=== PATIENT | female | born 1955 | race Caucasian/White ===

== ENCOUNTER 2020-11-21 12:02 | Outpatient (REF) | payer MEDICARE, SELFPAY | END 2020-11-21 12:03 | disposition home or self-care (01) | LOC: HO.LAB 12:02 | PROVIDERS: Visit Provider Internal Medicine | DX: Z20.822 Contact with and (suspected) exposure to COVID-19 (principal) | CPT/HCPCS: 36415; C9803; U0003; U0005 ==

== ENCOUNTER 2025-06-28 14:43 | Outpatient (AMB) | payer MEDICARE, SELFPAY ==
--- OUTSIDE RECORDS SUMMARY | 2020-06-11 11:41 | XMS_ITS | Encounter Summary ---
Author Organization [facility] Address [address] [place] [address] [place] [id number] Phone Care Team Providers Care Ophthalmology Technician Name Role Phone Mishel Ivan MD Primary Care Provider + [phone] Encounter Details Date Type Department Care Team (Late st Contact Info) Description 06/11/2020 11:41 AM EDT Hospital Encounter [facility] [address] [place] [id number] Natasha Gan CNP [address] [place] [address] Social History Tobacco Use Types Packs/Day Years Used Date Smoking Tobacco: Never Smokeless Tobacco: Never Alcohol Use Standard Drinks/Week Comments Yes 7 (1 standard drink = 0.6 oz pur e alcohol) Home Health Assessment: Transportation Answer Date Recorded Lack of Transportation (Medical) No 09/01/2024 Lack of Transportation (Non-Medical) No 09/01/2024 Patient Unable or Declines to Respond No 09/01/2024 Education Answer Date Recorded Are you interested in more education? Not on henna e 01/29/2023 Are you concerned about learning? Not on file 01/29/2023 No 01/29/2023 No 01/29/2023 Digital Access Answer Date Recorded No 03/01/2023 No 03/01/2023 Reliable internet access at home? Not on file 03/01/2023 Device with a working camera? Not on file Intimate Partner Violence Answer Date R ecorded Are you denied basic needs s uch as food, clothing, or medical care? No 08/14/2024 In the past 12 months have y ou been in a relationship with a person who hurts, threatens, or tries to control you? No 08/14/2024 Are you denied basic needs s uch as food, clothing, or medical care? No 08/14/2024 In the past 12 months have y ou been in a relationship with a person who hurts, threatens, or tries to control you? No 08/14/2024 Comments No Sex and Gender Information Value Date Recorded Sex Assigned at Female 06/11/2020 1:06 PM EDT Legal Sex Female 9:59 PM EDT Gender Identity Female 06/11/2020 1:06 PM EDT Sexual Orientation Not on file documented as of this encounter Functional Status * Calculated C-SSRS Risk Score (Lifetime/Recent) Answer Date of Assessment Author No Risk Indicated 08/14/2024 2:31 PM Wanda Kinsey RN * [place] Suicide Severity Rating Scale (Screener/Recent Self-Report) Question Answer Date of Assessment Author 1. Wish to be (Past 1 Month) No 08/14/2024 2:31 PM Wanda Loomis RN 2. Non-Specific Active Suicidal Thoughts (Past 1 Month) No 08/14/2024 2:31 PM Wanda Loomis RN 6. Suicidal Behavior (Lifetime) No 08/14/2024 2:31 PM Wanda Loomis, LAURITA documented as of this encounter Plan of Treatment Not on file documented as of this encounter Procedures Procedure Name Priority Date/Time Associated Diagnosis Comments XR HAND 3 OR MORE VIEWS (LEFT) Urgent/patient waiting 06/11/2020 11:46 AM EDT Horse bite, initial encounter documented in this encounter Results * XR HAND 3 OR MORE VIEWS (LEFT) (06/11/2020 11:46 AM EDT) Anatomical Region Laterality Modality Hand Left Radiographic Marlyn ging 06/11/2020 11:5 8 AM EDT Impressions 06/11/2020 12:06 PM EDT Mildly displaced oblique fracture through the 5th metacarpal. Narrative 06/11/2020 12:06 PM EDT EXAM: XR HAND 3 OR MORE VIEWS (LEFT) COMPARISON: None FINDINGS: Mildly displaced oblique fracture through the proximal diaphysis of the 5th metacarpal without intra-articular extension. There is minimal palmar angulation of the distal fragment on the lateral view. Remaining osseous structures are intact. Prominent hypertrophic degenerative changes at the 1st carpometacarpal joint associated with adjacent prominent soft tissue calcifications. No radiopaque foreign body. No soft tissue gas in the vicinity of the fracture site. Procedure Note Chinmay Cruz MD - 06/11/2020 EXAM: XR HAND 3 OR MORE VIEWS (LEFT) COMPARISON: None FINDINGS: Mildly displaced oblique fracture through the proximal diaphysis of the5th metacarpal without intra-articular extension. There is minimal palmarangulation of the distal fragment on the lateral view. Remaining osseousstructures are intact. Prominent hypertrophic degenerative changes at the1st carpometacarpal joint associated with adjacent prominent soft tissuecalcifications. No radiopaque foreign body. No soft tissue gas in thevicinity of the fracture site. IMPRESSION: Mildly displaced oblique fracture through the 5th metacarpal. Natasha Gan GAS MAIN FITTER IMG XR UPPER EXTREMITY Mihaela l Result documented in this encounter Visit Diagnoses Not on filedocumented in this encounter Care Teams Ophthalmology Technician Relationship Specialty Start Date End Date Mishel Ivan MD PCP - General Internal Medicine 12/29/17 01/26/22 documented as of this encounter Additional Source Comments The information contained in this document represents components of the legal health record. It is not the complete legal health record.[facility]
--- NOTE | 2025-06-28 14:59 | A.OFFVIS_ITS ---
Intake Visit Reasons: ENP-Parkinson's Disease HPI Comments Details: The patient is a 70-year-old female, who has worked in raising horses for years, with strong family history of Parkinson's presenting with symptoms associated with Parkinson's Disease. The condition was initially suspected during a past medical evaluation that included a CAT scan and MRI, ordered by Dr. Godinez around April. The imaging did not conclusively identify Parkinson. The principal symptoms involve a shuffle, a forward-leaning posture, tremors, poor motor skills predominantly affecting the right side, and persistent fatigue that worsens by the afternoon. A vitamin D deficiency has been previously identified and treated with weekly supplements, yet significant fatigue persists. Additionally, the patient experiences a visual disturbance described as a film over her eyes, contributing to difficulty in reading. There is an established history of droopy eyelid on the right side. An occasional gag reflex accompanied by coughing is noted, although there are no reports of nausea or vomiting. [facility] Medical History (Updated 06/28/25 @ 15:14 by Enrike Evans MD) Rosacea Pure hypercholesterolemia Osteoarthritis of hip Actinic keratosis Basal cell carcinoma of skin Hypertension Lichen sclerosus Vitamin B12 deficiency Vitamin D deficiency Family History (Updated 06/26/25 @ 11:38 by Jean Marie Anderson CMA) Mother Breast cancer Father Parkinson's disease dementia Prostate cancer Pacemaker Brother Prostate cancer Review of Systems Const Details: - General: Reports significant fatigue, weight loss. - Eyes: Reports film over eyes; denies double vision. - Neurological: Reports tremors, poor motor skills, and right-handed positioning when walking; denies cognitive changes beyond increased anxiety. - Musculoskeletal: Reports shuffle, forward-leaning posture. - Psychiatry: Reports anxiety; denies significant changes in mood or behavior. - Endocrine: Previously low vitamin D levels, now stable. Physical Exam Neuro Other: Mental Status: Alert and oriented to person, place, and time. Normal attention. Normal spontaneous speech, fluency, and comprehension. No obvious issues with mood and memory. Affect is appropriate. Cranial Nerves: CN II: Visual sanford full to confrontation, visual acuity intact. CN III, IV, : Pupils equal, round, reactive to light and accommodation. Extraocular movements are normal. CN V: Facial sensation is normal. CN VII: Facial movements symmetrical. CN VIII: Hearing intact to bedside conversation is normal. CN IX, X: Palate elevates symmetrically. CN XI: Shoulder shrug and head turn symmetrical. CN XII: Tongue midline without atrophy or fasciculations. Motor: Bulk and tone normal in all extremities. No significant muscle weakness in arms and legs. No drift. Reflexes: Deep tendon reflexes 2+ and symmetric. Plantar response down-going bilaterally. Coordination: Jyminq-kd-myjx and hqci-dv-rcgg testing normal. No dysmetria. Gait and Station: No obvious gait abnormality. No ataxia or instability. Sensory: Intact to light touch, pinprick, and vibration. Romberg is negative. Extrapyramidal: Decreased facial expression and blinking. There was mild right-sided ptosis. There was moderate cogwheeling rigidity especially in right upper extremity and LEs on left side. Fine finger movements are slow. There was mild generalized bradykinesia. She was walking cautiously with decreased right arm swing. Speech: Normal; no dysarthria or tremor. Assessment & Plan Assessment & Plan (1) Parkinson disease: Code(s): G20.A1 - Parkinson's disease without dyskinesia, without mention of fluctuations Category: Medical Qualifiers: Dyskinesia presence: without dyskinesia Fluctuating manifestations: with fluctuating manifestations Qualified Code(s): G20.A2 - Parkinson's disease without dyskinesia, with fluctuations (2) Ptosis: Code(s): H02.409 - Unspecified ptosis of unspecified eyelid Category: Medical Qualifiers: Laterality: right Qualified Code(s): H02.401 - Unspecified ptosis of right eyelid Plan Impression: Parkinson disease, mild, EDSS 1.0, more so on the right side with some anxiety Rec: a: Education of patient about this condition. An overview was provided and link provided for further reading. b: Carbidopa/levodopa 25/100 tid c: Bring CD of brain scan at next visit d: Regular exercise or walking regimen e: Anxiety may require some treatment Orders: Orders Acetylcholine Recept. Blocking Today H02.401 - Unspecified ptosis of right eyelid Acetylcholine Nurse Navigator Modulating Today H02.401 - Unspecified ptosis of right eyelid Acetylcholine Receptor Binding Today H02.401 - Unspecified ptosis of right eyelid Medications: New carbidopa-levodopa 25-100 mg (Sinemet) 1 tab PO TID 270 tabs 1RF Coding Level of Care Code New Pt Level 5 (79402) Diagnoses Parkinson's disease without dyskinesia, with fluctuating manifestations G20.A2 Dyskinesia presence: without dyskinesia Fluctuating manifestations: with fluctuating manifestations Ptosis of right eyelid H02.401 Laterality: right
--- OUTSIDE RECORDS SUMMARY | 2025-06-28 19:02 | XMS_ITS | Encounter Summary ---
Author Organization [facility] Address [address] [place] [phone] Phone Care Team Providers Care Inspector Subassembly Name Role Phone Antonette Blanco MD Primary Care Pr ovider Encounter Details Date Type Department Care Team ([facility] st Contact Info) Description 08/14/2024 Procedure Pass OR Admitting Dept - Virtual Department [address] [place] [address] Social History Tobacco Use Types Packs/Day Years Used Date Smoking Tobacco: Never Smokeless Tobacco: Never Alcohol Use Standard Drinks/Week Comments Yes 7 (1 standard drink = 0.6 oz pur e alcohol) Home Health Assessment: Transportation Answer Date Recorded Lack of Transportation (Medical) No 08/17/2024 Lack of Transportation (Non-Medical) No 08/17/2024 Patient Unable or Declines to Respond No 08/17/2024 Education Answer Date Recorded Are you interested [...] 08/14/2024 2:31 PM Wanda Kinsey RN * [place] Suicide Severity Rating Scale (Screener/Recent Self-Report) Question Answer Date of Assessment Author 1. Wish to be (Past 1 Month) No 08/14/2024 2:31 PM Wanda Loomis RN 2. Non-Specific Active Suicidal Thoughts (Past 1 Month) No 08/14/2024 2:31 PM Wanda Loomis RN 6. Suicidal Behavior (Lifetime) No 08/14/2024 2:31 PM Wanda Loomis RN documented as of this encounter Plan of Treatment Not on file documented as of this encounter Visit Diagnoses Not on filedocumented in this encounter Care Teams Inspector Subassembly Relationship Specialty Start Date End Date Antonette Blanco MD [address] [place] [id number] PCP - General Internal Medicine 01/27/24 documented as of this encounter Additional Source Comments The information contained in this document represents components of the legal health record. It is not the complete legal health record.[facility]
== END 2025-06-28 15:22 | disposition home or self-care (01) ==
LOC: HO.HSM 14:44
PROVIDERS: PCP Internal Medicine; Visit Provider Psychiatry & Neurology Neurology
DX: G20.A2 Parkinson's disease without dyskinesia, with fluctuations (principal); H02.401 Unspecified ptosis of right eyelid
CPT/HCPCS: 99204

== ENCOUNTER → 2025-06-28 14:43 | Outpatient (BNVA) | payer MEDICARE, SELFPAY | PROVIDERS: PCP Internal Medicine; Visit Provider Psychiatry & Neurology Neurology | DX: G20.A2 Parkinson's disease without dyskinesia, with fluctuations (principal); H02.401 Unspecified ptosis of right eyelid | CPT/HCPCS: 99202 ==

== ENCOUNTER 2025-07-23 14:34 | Outpatient (REF) | payer MEDICARE, SELFPAY ==
[2025-07-24 09:09] LABS: Lyme Abs Screen <0.90 index
== END 2025-07-23 14:35 | disposition home or self-care (01) ==
LOC: HO.LAB 14:34
PROVIDERS: PCP Internal Medicine; Visit Provider Psychiatry & Neurology Neurology
DX: G20.A1 Parkinson's disease without dyskinesia, without mention of fluctuations (principal); I67.89 Other cerebrovascular disease; H02.403 Unspecified ptosis of bilateral eyelids; Z01.84 Encounter for antibody response examination; Z79.899 Other long term (current) drug therapy
CPT/HCPCS: 36415; 85652; 86617; 86618; 99212

== ENCOUNTER 2025-07-23 14:34 | Outpatient (AMB) | payer MEDICARE, SELFPAY ==
--- OUTSIDE RECORDS SUMMARY | 2020-06-11 11:41 | XMS_ITS | Encounter Summary ---
Author Organization [facility] Address [address] [place] [address] [place] [phone] Phone Care Team Providers Care Bead Worker Sewing Name Role Phone Mishel Ivan MD Primary Care Provider + [phone] Encounter Details Date Type Department Care Team (Late st Contact Info) Description 06/11/2020 11:41 AM EDT Hospital Encounter [facility] [address] [place] [id number] Natasha Gan CNP [address] [place] [address] Social History Tobacco Use Types Packs/Day Years [...] 08/14/2024 2:31 PM Wanda Kinsey RN * [place] Suicide Severity Rating Scale (Screener/Recent Self-Report) Question [...] fracture through the 5th metacarpal. Natasha Gan OPERATIONS ADMINISTRATOR IMG XR UPPER EXTREMITY Mihaela l Result documented in this encounter Visit Diagnoses Not on filedocumented in this encounter Care Teams Bead Worker Sewing Relationship Specialty Start Date End Date Mishel Ivan MD PCP - General Internal Medicine 12/29/17 01/26/22 documented as of this encounter Additional Source Comments The information contained in this document represents components of the legal health record. It is not the complete legal health record.[facility]
--- NOTE | 2025-07-23 14:43 | A.OFFVIS_ITS ---
Intake Visit Reasons: 3 weeks HPI Comments Details: The patient is a 70-year-old female, who has worked in raising horses for years, with strong family history of Parkinson's presenting with symptoms associated with Parkinson's Disease. The condition was initially suspected during a past medical evaluation that included a CAT scan and MRI, ordered by Dr. Godinez around April. The imaging did not conclusively identify Parkinson. The principal symptoms involve a shuffle, a forward-leaning posture, tremors, poor motor skills predominantly affecting the right side, and persistent fatigue that worsens by the afternoon. A vitamin D deficiency has been previously identified and treated with weekly supplements, yet significant fatigue persists. Additionally, the patient experiences a visual disturbance described as a film over her eyes, contributing to difficulty in reading. There is an established history of droopy eyelid on the right side. An occasional gag reflex accompanied by coughing is noted, although there are no reports of nausea or vomiting. She is presenting for a follow-up on Parkinson's disease management and recent ocular symptoms. She has been prescribed carbidopa/levodopa and reports an improvement over the last three weeks. A recent episode of diarrhea resolved within a week. The patient notes progressive ptosis of the left eyelid that started about a month ago, prompting concerns over myasthenia gravis. The right eyelid has been chronically affected, contributing to visual difficulties that might also involve cataracts. Non-adherence to hypertension management may underpin the multiple ischemic changes seen on brain imaging; these are presumed silent strokes. Consequently, she must be vigilant with her antihypertensive regimen. Cardiovascular evaluation, including Holter monitoring, has been indicated to assess stroke risks. Previous antibody tests related to myasthenia gravis were incomplete, indicating the need for repeat testing. Family history includes droopy eyelids among siblings. [facility] Medical History (Updated 07/23/25 @ 14:54 by Enrike Evans MD) Rosacea Pure hypercholesterolemia Osteoarthritis of hip Actinic keratosis Basal cell carcinoma of skin Hypertension Lichen sclerosus Vitamin B12 deficiency Vitamin D deficiency Family History (Updated 06/26/25 @ 11:38 by Jean Marie Anderson CMA) Mother Breast cancer Father Parkinson's disease dementia Prostate cancer Pacemaker Brother Prostate cancer Review of Systems Narrative - Neurological: Reports drooping eyelids, especially on the left. - Ophthalmologic: Reports progressive visual disturbance; indeterminate if related to cataracts. - Cardiovascular: Denies known heart disease. - Gastrointestinal: Reports recent episode of severe diarrhea, resolved. - Dermatologic: Denies any associated skin changes. ? Physical Exam Neuro Other: Mental Status: Alert and oriented to person, place, and time. Normal attention. Normal spontaneous speech, fluency, and comprehension. No obvious issues with mood and memory. Affect is appropriate. Cranial Nerves: CN II: Visual sanford full to confrontation, visual acuity intact. CN III, IV, : Pupils equal, round, reactive to light and accommodation. Extraocular movements are normal. CN V: Facial sensation is normal. CN VII: Facial movements symmetrical. CN VIII: Hearing intact to bedside conversation is normal. CN IX, X: Palate elevates symmetrically. CN XI: Shoulder shrug and head turn symmetrical. CN XII: Tongue midline without atrophy or fasciculations. Moderate right and mild left-sided ptosis Coordination: Scypzd-cy-ddcf and vxfk-tw-dtdn testing normal. No dysmetria. Gait and Station: No obvious gait abnormality. No ataxia or instability. Extrapyramidal: Full facial expressions and blinking. No rigidity. Movements are appropriate with no tremor or abnormality. Speech: Normal; no dysarthria or tremor. Assessment & Plan Assessment & Plan (1) Parkinson disease: Code(s): G20.A1 - Parkinson's disease without dyskinesia, without mention of fluctuations Category: Medical (2) Ptosis: Comment: ACH binding Abs at [facility] in Jun 2025: WNL Code(s): H02.409 - Unspecified ptosis of unspecified eyelid Category: Medical Qualifiers: Laterality: right Qualified Code(s): H02.401 - Unspecified ptosis of right eyelid (3) Cerebral microvascular disease: Code(s): I67.89 - Other cerebrovascular disease Category: Medical (4) Multiple cerebral infarctions: Code(s): I63.9 - Cerebral infarction, unspecified Category: Medical Plan Impression: 1. Parkinson's disease 2. 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 Bilateral eye ptosis, right more than left Recommendations: 1. Continue carbidopa/levodopa 1 3 times a day 2. Baby aspirin daily 3. Good control of blood pressure 4. Review of her lipid profile at next visit 5. Acetyl choline receptor antibody modulating and blocking antibody titers Orders: Orders ECG 7 day holter monitor Today I63.9 - Cerebral infarction, unspecified Erythrocyte Sedimentation Rate Today I63.9 - Cerebral infarction, unspecified, I67.89 - Other cerebrovascular disease Lyme IgG/IgM w/reflex to WB Today I63.9 - Cerebral infarction, unspecified, I67.89 - Other cerebrovascular disease Coding Level of Care Code Est Pt Level 5 (30266) Diagnoses Parkinson disease G20.A1 Ptosis of right eyelid H02.401 Laterality: right Cerebral microvascular disease I67.89 Multiple cerebral infarctions I63.9
--- OUTSIDE RECORDS SUMMARY | 2025-07-23 18:22 | XMS_ITS | Clinical Summary ---
Author Organization [facility] Address [address] [place] [address] Phone Care Team Providers Care Vp Business Development Name Role Phone Antonette Blanco MD Primary Care Pr ovider Allergies Active Allergy Reactions Criticality Noted Date Comments Sulfamethoxazole-Trimethoprim Nausea And Vomiting 04/20/2014 Medications ergocalciferol (DRISDOL) 50,000 unit capsule Take 1 capsule by mouth once a week. 4 Active amLODIPine (NORVASC) 10 MG tablet Take 1 tablet by mouth daily. 3 Active pravastatin (PRAVACHOL) 20 MG tablet Take 1 tablet by mouth daily. 3 Active ALPRAZolam (XANAX) 0.5 MG tablet TAKE 1 TABLET THE NIGHT BEFORE PROCEDURE THEN 2 TABLETS 1 HOUR PRE OP 4 Active celecoxib (CELEBREX) 100 MG capsuleIndications :Pain Take 1 capsule (100 mg total) by mouth 2 (two) times a day. 60 capsule 4 Active acetaminophen (TYLENOL) 325 mg tablet Take 2 tablets (650 mg total) by mouth every 6 (six) hours. 150 tablet 4 Active aspirin 81 MG EC tablet Take 1 tablet (81 mg total) by mouth 2 (two) times a day. For 30 days following surgery. 60 tablet 4 Active docusate sodium (COLACE) 100 MG capsule Take 1 capsule (100 mg total) by mouth 2 (two) times a day as needed for mild constipation. 30 capsule 4 Active ondansetron (ZOFRAN-ODT) 4 MG disintegrating tablet Take 1 tablet (4 mg total) by mouth every 8 (eight) hours as needed for nausea. 10 tablet 4 Active polyethylene glycol (MIRALAX) 17 gram/dose powder Take 17 g by mouth daily. 4 Active oxyCODONE 5 MG immediate release tabletIndications: S/P revision of total knee, left,Post-operativ e pain Take 1 tablet (5 mg total) by mouth every 8 (eight) hours as needed (moderate pain). Partial fill ok. Take smallest, least frequent effective dose. 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 No evidence at this point for abscess or tenosynovitis but she will need close monitoring --The case was discussed with infectious disease with recommendation to broaden antibiotics to IV Zosyn. A wound culture was obtained in the ED. --Orthopedics consult --- Wound care --She may benefit from OT once infection under better control Hypertension 03/08/2014 Assessment & Plan (06/11/2020 4:38 PM EDT): Blood pressure somewhat elevated in the ED, this may be related to pain and physiologic stress from infection --Continue amlodipine and chlorthalidone per home regimen Basal cell carcinoma of skin 02/16/2013 Overview (06/11/2020): Overview: BCC 02/13 left cheek (metatypical type) & right cheek (nodular) Pterygium 02/19/2011 Family history of breast cancer in mother 2010 Overview (06/11/2020): Overview: at age 27 Osteoarthritis of hip 04/01/2010 Pure hypercholesterolemia 07/15/2006 Rosacea 07/15/2006 Resolved Problems Problem Noted Date Diagnosed Date Resolved Date Chronic knee pain after tota l replacement of left knee joint 01/27/2024 09/19/2024 Encounters Date Type Department Care Team Description 06/29/2025 10:36 AM EDT - 06/29/2025 11:59 PM EDT Hospital Encounter [facility] [address] [place] [address] Enrike Evans MD Discharge Disposition: Home or Self Care 06/29/2025 Transcribe Orders [facility] [address] [place] [id number] Enrike Evans MD Ptosis of right eyelid (Primary Dx) from Last 3 Months Immunizations Immunization Administration Dates Next Due INFLUENZA, SPLIT VIRUS, TRIV ALENT W/ PRESERVATIVE IM 10/15/2012 Pneumococcal conjugate PCV13 06/11/2020(Deferred : Contraindication) Td, unspecified formulation 12/07/2002 Tdap 03/08/2014 Family History Relation Status Comments Father Mother Social History Tobacco Use Types Packs/Day Years Used Date Smoking Tobacco: Never Smokeless Tobacco: Never Tobacco Cessation:Counseling Given: Not Answered Alcohol Use Standard Drinks/Week Comments Yes 7 [...] PM EDT Sexual Orientation Not on file Last Filed Vital Signs Vital Sign Reading Time Taken Comments Blood Pressure 166/84 09/04/2024 10:09 AM EST Pulse 84 09/04/2024 10:09 AM EST Temperature 36.6 C (97.8 F) 09/04/2024 10:09 AM EST Respiratory Rate 18 09/04/2024 10:09 AM EST Oxygen Saturation 100% 09/04/2024 10:09 AM EST Inhaled Oxygen Concentration - - Weight 61.7 kg (136 lb) 08/14/2024 2:34 PM EST Height 167.6 cm (5' 6 ) 08/14/2024 2:34 PM EST Body Mass Index 21.95 08/14/2024 2:34 PM EST Plan of Treatment Health Maintenance Due Date Last Done Comments DEPRESSION SCREENING 1965 HEPATITIS C SCREENING 1971 COLOGUARD 1998 COLONOSCOPY 1998 FOBT 1998 SIGMOIDOSCOPY 1998 VIRTUAL COLONOSCOPY 1998 PNEUMOCOCCAL VACCINES (50+ years) (1 of 1 - PCV) 2003 ZOSTER VACCINES (1 of 2) 2003 OSTEOPOROSIS SCREENING INITI AL (ONE-TIME) 2018 COLORECTAL CANCER SCREENING 02/25/2019 FIT TEST 02/25/2019 02/25/2018 Adult Td,Tdap Booster 03/08/2024 03/08/2014 , 12/07/2002 BLOOD PRESSURE 03/05/2025 09/04/2024 INFLUENZA VACCINE (#1) 2025 10/15/2012 COVID-19 VACCINE ( - 2024-2 6 season) 2025 MAMMOGRAM 02/10/2026 02/11/2024, 10/09/2021 LIPID PANEL 04/27/2027 04/27/2022, 10/29/2017 RSV VACCINE (1 - 1-dose 75+ series) 01/24/2028 SMOKING STATUS SCREENING (On ce After 26 Yrs) Completed 09/04/2024 HEPATITIS A VACCINES Aged Out No long er eligible based on patient's age to complete this topic HIB VACCINES Aged Out No longer eligi ble based on patient's age to complete this topic MENINGOCOCCAL VACCINES (ACWY) Aged Out No longer eligible based on patient's age to complete this topic MENINGOCOCCAL VACCINES (B) Aged Out N o longer eligible based on patient's age to complete this topic Medical Devices Implanted Type Area Label Sewer Device Identifier Shelf Expiration Date Model / Serial / Lot Knee Bearing [id number] Implant Insert Dcm Ps Vanguard 08 - [id number] Implanted:Qty : 1 on 08/14/2024 by Chucho Cullen MD at [facility] NODATA Left: Knee [employer] 10/26/2028 [id number] / / [id number] Prosthetic Joint Prosthetic Joint Bilater al: Knee Prosthetic Joint Prosthetic Joint Left: Hip Tray 75mm Tibial Knee Vanguard 360 Revision System - [id number] Implanted:Qty : 1 on 08/14/2024 by Chucho Cullen MD at [facility] STANDARD Left: Knee [employer] 01/16/2033 [id number] / / [id number] Luis Medullary Cement Plugs 1-20 Mm Diameter Implanted:Qty : 1 on 08/14/2024 by Chucho Cullen MD at [facility] Left: Knee AZEEM BIOMET 03/13/2029 / / [id number] Cement Bone 1x40 Standard - [id number] Implanted:Qty : 2 on 08/14/2024 by Chucho Cullen MD at [facility] Left: Knee AZEEM BIOMET 10/03/2026 [id number] / / [id number] Box Component 62.5mm Femoral Knee Vanguard Interlok [place] Posterior Stabilized Open Cemented Left - [id number] Implanted:Qty : 1 on 08/14/2024 by Chucho Cullen MD at [facility] Left: Knee [employer] 03/13/2034 [id number] / / [id number] Knee Augment Wing Lg Cruciate Vanguard 360 Revision System 10 - [id number] Implanted:Qty : 1 on 08/14/2024 by Chucho Cullen MD at [facility] Left: Knee [employer] 04/13/2032 [id number] / / [id number] Tibial Augment 360 75x5mm Implant Bmt Tib Aug 10 - [id number] Implanted:Qty : 1 on 08/14/2024 by Chucho Cullen MD at [facility] Left: Knee [employer] 11/26/2027 [id number] / / [id number] Knee Stem Extension L 40mm Od 14 Vanguard 360 [place] Alloy Grit Blasted - [id number] Implanted:Qty : 1 on 08/14/2024 by Chucho Cullen MD at [facility] Left: Knee [employer] 01/16/2025 [id number] / / [id number] Button Patella Knee Vanguard Uhmwpe 3 Series A Standard - [id number] Implanted:Qty : 1 on 08/14/2024 by Chucho Cullen MD at [facility] Left: Knee [employer] 04/30/2028 [id number] / / [id number] Procedures Procedure Name Priority Date/Time Associated Diagnosis Comments ACETYLCHOLINE RECEPTOR BINDING ANTIBODY Routine 06/29/2025 10:36 AM EDT Ptosis of right eyelid LIPID PANEL Routine 04/27/2022 9:01 AM EDT Primary hypertension from Last 3 Months or Most Recently Relevant to Health Maintenance Results * ACETYLCHOLINE RECEPTOR BINDING ANTIBODY (06/29/2025 10:36 AM EDT) ACH RECEPTOR BIND AB 0.00 <=0.02 nmol/L [facility] LAB MED AND PAT+ Comment: (NOTE) ADDITIONAL INFORMATION This test was developed and its performance characteristics determined by [facility] in a manner consistent with CLIA requirements. This test has not been cleared or approved by the U.S. Food and Drug Administration. Blood 06/29/2025 10:3 6 AM EDT 06/29/2025 10:41 AM EDT us Enrike Evans MD LAB BLOOD ORDERABLES F inal Result [facility] DPT OF LAB MED AND PAT+ [address] [place] [address] * (ABNORMAL) Lipid panel (04/27/2022 9:01 AM EDT) HDL 71 mg/dL [facility] Comment: Interpretation <40 mg/dL: Low HDL cholesterol (major risk factor for CHD) Greater than or equal to 60 mg/dL: High HDL cholesterol ( negative risk factor for CHD) HDL - cholesterol is affected by a number of factors, e.g. smoking, excerise, hormones, sex and age. CHOLESTEROL 246(H) 0 - 240 mg/dL [facility] TRIGLYCERIDES 82 30 - 160 mg/dL [facility] LDL 159(H) 50 - 129 mg/dL [facility] Comment: LDL levels in terms of risk for coronary heart disease: <100 mg/dL: Optimal 100-129 mg/dL: Near or above optimal 130-159 mg/dL: Borderline high 160-189 mg/dL: High >190 mg/dL: Very High CARDIAC RISK RATIO 3.5 3.3 - 4.4 C [facility] Blood 04/27/2022 9:01 AM EDT 04/27/2022 9:05 AM EDT us Antonette Blanco MD LAB BLOOD ORDERA BLES Final Result Performing Organization Address City/[facility]/ZIP Co de Phone Number [facility] [address] [place] [address] from Last 3 Months or Most Recently Relevant to Health Maintenance [place] [address] [place] [address] MEDICARE HMO BLUE REPLACEMENT MEDICARE PART A & [place] [address] [address] MEDICARE HMO BLUE REPLACEMENT [place] PART [place] & [place] [id number] MEDICARE HMO BLUE REPLACEMENT MEDICARE HMO BLUE REPLACEMENT MEDICARE HMO BLUE REPLACEMENT Member Subscriber Plan / Payer (Ef fective 2018-Present) Name:Coreen Lechuga Relation to Subscriber:Self Name:Coreen Lechuga Payer ID:[id number] (NAIC) Type:Medicare Address: [place] [id number] MEDICARE PART A & B MEDICARE HMO BLUE REPLACEMENT MEDICARE HMO BLUE REPLACEMENT MEDICARE PART A & B MEDICARE HMO BLUE REPLACEMENT MEDICARE PART A & [place] [address] [address] MEDICARE HMO BLUE REPLACEMENT MEDICARE PART A & B Advance Directives For more information, please contact: [phone] (9AM - 5PM [facility]/[facility], Wednesday-Wednesday) Documents on File Type Date Recorded Patient Business Systems Analyst Expl anation Power of Trackmobile Operator * Full Code (Latest Code Status on File) Date Activated Date Inactivated Comments 08/14/2024 6:05 AM Question Answer Comments Code Status Confirmed With: Patient Care Teams Vp Business Development Relationship Specialty Start Date End Date Antonette Blanco MD [address] [place] [phone] PCP - General Internal Medicine 01/27/24 Additional Source Comments The information contained in this document represents components of the legal health record. It is not the complete legal health record.[facility]
--- OUTSIDE RECORDS SUMMARY | 2025-07-23 18:22 | XMS_ITS | Encounter Summary ---
Author Organization [facility] Address [address] [place] [address] Phone Care Team Providers Care Optical Instrument Repairer Name Role Phone Antonette Blanco MD Primary Care Pr ovider Encounter Details Date Type Department Care Team ([facility] st Contact Info) Description 08/14/2024 Procedure Pass OR Admitting Dept - Virtual Department [address] [place] [address] Social History Tobacco Use Types Packs/Day Years [...] 08/14/2024 2:31 PM Wanda Kinsey RN * [place] Suicide Severity Rating Scale (Screener/Recent Self-Report) Question [...] on filedocumented in this encounter Care Teams Optical Instrument Repairer Relationship Specialty Start Date End Date Antonette Blanco MD [address] [place] [id number] PCP - General Internal Medicine 01/27/24 documented as of this encounter Additional Source Comments The information contained in this document represents components of the legal health record. It is not the complete legal health record.[facility]
== END 2025-07-23 15:02 | disposition home or self-care (01) ==
LOC: HO.HSM 14:35
PROVIDERS: PCP Internal Medicine; Visit Provider Psychiatry & Neurology Neurology
DX: G20.A1 Parkinson's disease without dyskinesia, without mention of fluctuations (principal); H02.401 Unspecified ptosis of right eyelid; I67.89 Other cerebrovascular disease; I63.9 Cerebral infarction, unspecified
CPT/HCPCS: 99214

== ENCOUNTER → 2025-08-06 09:43 | Outpatient (REF) | payer MEDICARE, SELFPAY ==
--- NOTE | 2025-08-06 09:46 | HM_ITS ---
* Total monitoring time 6 days. * Underlying rhythm is sinus with an average rate of 77/Min. * Rare supraventricular ectopy. * Rare ventricular ectopy. * No significant pauses or high-grade AV blocks. * No patient markers or diary events. MTDD
--- OUTSIDE RECORDS SUMMARY | 2025-08-06 11:12 | XMS_ITS ---
Author Organization [facility] [address] [place] [address] [place] [id number] Phone Care Team Providers Care High Speed Printer Operator Name Role Phone Antonette Blanco MD Primary Care Prov ider Active Problems Problem Noted Date Diagnosed Date Vitamin B12 deficiency 11/02/2023 Vitamin D deficiency 11/02/2023 Lichen sclerosus 03/18/2022 HTN (hypertension) 03/08/2014 Basal cell carcinoma of skin 02/16/2013 Overview (10/15/2024): BCC /13 left cheek (metatypical type) & right cheek (nodular) Actinic keratosis 02/16/2013 Overview (10/15/2024): Actinic keratosis Right jaw (anterior & posterior) Pterygium 02/19/2011 Osteoarthritis of hip 04/01/2010 Pure hypercholesterolemia 07/15/2006 Rosacea 07/15/2006 Current Treatment and Therapy Plans No current plan information found. Past Treatment and Therapy Plans No past plan information found. Lifetime Dose Tracking * Chemical Lifetime Dose Automatic Entry Manual Entr y CTDIvol 66.4 mGy 66.4 mGy 0 mGy
--- OUTSIDE RECORDS SUMMARY | 2025-08-06 11:12 | XMS_ITS | Clinical Summary ---
Author Organization [facility] Address [address] [place] [address] Phone Care Team Providers Care Social Work Lecturer Name Role Phone Antonette Blanco MD Primary [...] knee replacement 01/27/2024 Overview (01/27/2024): Left medial 'Pgsma-ftd-ibfca' with signs of mal nutrition 06/12/2020 Bitten [...] - 06/29/2025 11:59 PM EDT Hospital Encounter [address] [address] Enrike Evans MD Discharge Disposition: Home or Self Care 06/29/2025 Transcribe Orders [address] [address] Enrike Evans MD Ptosis of right eyelid [...] INFLUENZA VACCINE (#1) 2025 10/15/2012 COVID-19 VACCINE (1 - 2024-2 6 season) 2025 MAMMOGRAM 02/10/2026 [...] this topic Medical Devices Implanted Type Area Hassock Maker Device Identifier Shelf Expiration Date Model / Serial / Lot Knee Bearing [id number] Implant Insert Dcm Ps Vanguard 08 - [id number] Implanted:Qty : 1 on 08/14/2024 by Chucho Cullen MD at [facility] NODATA Left: Knee [employer] 10/26/2028 [id number] / / [id number] Prosthetic Joint Prosthetic Joint Bilater al: Knee Prosthetic Joint Prosthetic Joint Left: Hip Tray 75mm Tibial Knee Vanguard 360 Revision System - [id number] Implanted:Qty : 1 on 08/14/2024 by Chucho Cullen MD at [facility] STANDARD Left: Knee [employer] 01/16/2033 [id number] / / [id number] Luis Medullary Cement Plugs 1-20 Mm Diameter Implanted:Qty : 1 on 08/14/2024 by Chucho Cullen MD at [facility] Left: Knee AZEEM BIOMET 03/13/2029 / / [id number] Cement Bone 1x40 Standard - [id number] Implanted:Qty : 2 on 08/14/2024 by Chucho Cullen MD at [facility] Left: Knee AZEEM BIOMET 10/03/2026 [id number] / / [id number] Box Component 62.5mm Femoral Knee Vanguard Interlok [place] Posterior Stabilized Open Cemented Left - [id number] Implanted:Qty : 1 on 08/14/2024 by Chucho Cullen MD at [facility] Left: Knee [employer] 03/13/2034 [id number] / / [id number] Knee Augment Wing Lg Cruciate Vanguard 360 Revision System 10 - [id number] Implanted:Qty : 1 on 08/14/2024 by Chucho Cullen MD at [facility] Left: Knee [employer] 04/13/2032 [id number] / / [id number] Tibial Augment 360 75x5mm Implant Bmt Tib Aug 10 - [id number] Implanted:Qty : 1 on 08/14/2024 by Chucho Cullen MD at [facility] Left: Knee [employer] 11/26/2027 [id number] / / [id number] Knee Stem Extension L 40mm Od 14 Vanguard 360 [place] Alloy Grit Blasted - [id number] Implanted:Qty : 1 on 08/14/2024 by Chucho Cullen MD at [facility] Left: Knee [employer] 01/16/2025 [id number] / / [id number] Button Patella Knee Vanguard Uhmwpe 3 Series A Standard - [id number] Implanted:Qty : 1 on 08/14/2024 by Chucho Cullen MD at [facility] Left: Knee [employer] 04/30/2028 [id number] / / [id number] Procedures Procedure Name Priority Date/Time Associated Diagnosis Comments ACETYLCHOLINE RECEPTOR BINDING ANTIBODY Routine 06/29/2025 10:36 AM EDT Ptosis of right eyelid LIPID PANEL Routine 04/27/2022 9:01 AM EDT Primary hypertension from Last 3 Months or Most Recently Relevant to Health Maintenance Results * ACETYLCHOLINE RECEPTOR BINDING ANTIBODY (06/29/2025 10:36 AM EDT) ACH RECEPTOR BIND AB 0.00 <=0.02 nmol/L [facility] DPT OF LAB MED AND PAT+ Comment: (NOTE) ADDITIONAL INFORMATION This test was developed and its performance characteristics determined by [facility] in a manner consistent with CLIA requirements. This test has not been cleared or approved by the U.S. Food and Drug Administration. Blood 06/29/2025 10:3 6 AM EDT 06/29/2025 10:41 AM EDT us Enrike Evans MD LAB BLOOD ORDERABLES F inal Result [facility] DPT OF LAB MED AND PAT+ [address] [place] [address] * (ABNORMAL) Lipid panel (04/27/2022 9:01 AM EDT) HDL 71 mg/dL [facility] Comment: Interpretation <40 mg/dL: Low HDL cholesterol (major risk factor for CHD) Greater than or equal to 60 mg/dL: High HDL cholesterol ( negative risk factor for CHD) HDL - cholesterol is affected by a number of factors, e.g. smoking, excerise, hormones, sex and age. CHOLESTEROL 246(H) 0 - 240 mg/dL [facility] TRIGLYCERIDES 82 30 - 160 mg/dL [facility] LDL 159(H) 50 - 129 mg/dL [facility] Comment: LDL levels in terms of risk for coronary heart disease: <100 mg/dL: Optimal 100-129 mg/dL: Near or above optimal 130-159 mg/dL: Borderline high 160-189 mg/dL: High >190 mg/dL: Very High CARDIAC RISK RATIO 3.5 3.3 - 4.4 C [facility] Blood 04/27/2022 9:01 AM EDT 04/27/2022 9:05 AM EDT us Antonette Blanco MD LAB BLOOD BKR OR DERABLES Final Result Performing Organization Address City/[facility]/ZIP Co de Phone Number [facility] [address] [place] [address] from Last 3 Months or Most Recently Relevant to Health Maintenance [place] [address] [place] [address] MEDICARE HMO BLUE REPLACEMENT MEDICARE PART A & [place] [address] [place] [address] MEDICARE HMO BLUE REPLACEMENT MEDIC[place] PART A & [place] [id number] MEDICARE HMO BLUE REPLACEMENT MEDICARE HMO BLUE REPLACEMENT MEDICARE HMO BLUE REPLACEMENT MEDICARE PART A & B MEDICARE HMO BLUE REPLACEMENT MEDICARE HMO BLUE REPLACEMENT MEDICARE PART A & B MEDICARE HMO BLUE REPLACEMENT MEDICARE PART A & B [facility] MEDICARE HMO BLUE REPLACEMENT MEDICARE PART A & B Advance Directives For more information, please contact: [phone] (9AM - 5PM [facility]/[facility], Wednesday-Wednesday) Documents on File Type Date Recorded Patient Calculating Machine Mechanic Expl anation Power of Air Plant Engineer * Full Code (Latest Code Status on File) Date Activated Date Inactivated Comments 08/14/2024 6:05 AM Question Answer Comments Code Status Confirmed With: Patient Care Teams Social Work Lecturer Relationship Specialty Start Date End Date Antonette Blanco MD [address] [place] [id number] PCP - General Internal Medicine 01/27/24 Additional Source Comments The information contained in this document represents components of the legal health record. It is not the complete legal health record.[facility]
--- OUTSIDE RECORDS SUMMARY | 2025-08-06 11:12 | XMS_ITS | Encounter Summary ---
Author Organization [facility] Address [address] [place] [phone] Phone Care Team Providers Care Receivable Manager Name Role Phone Antonette Blanco MD Primary Care Pr ovider Encounter Details Date Type Department Care Team ([facility] st Contact Info) Description 08/14/2024 Procedure Pass OR Admitting Dept - Virtual Department [address] [place] [address] Social History Tobacco Use Types Packs/Day Years [...] 08/14/2024 2:31 PM Wanda Kinsey RN * [place] Suicide Severity Rating Scale (Screener/Recent Self-Report) Question [...] on filedocumented in this encounter Care Teams Receivable Manager Relationship Specialty Start Date End Date Antonette Blanco MD [address] [place] [id number] PCP - General Internal Medicine 01/27/24 documented as of this encounter Additional Source Comments The information contained in this document represents components of the legal health record. It is not the complete legal health record.[facility]
--- OUTSIDE RECORDS SUMMARY | 2025-08-06 11:12 | XMS_ITS | Clinical Summary ---
Author Organization [address] Address [address] [place] [phone] Phone Care Team Providers Care Machine Stripper Name Role Phone Antonette Blanco MD Primary Care Prov ider Allergies Active Allergy Reactions Criticality Noted Date Comments Sulfamethoxazole-Trimethoprim Nausea And Vomiting 04/20/2014 Medications celecoxib (CeleBREX) 100 mg capsule 4 Active ergocalciferol (VITAMIN D-2) 1,250 mcg (50,000 unit) capsule TAKE 1 CAPSULE BY MOUTH 1 TIME A WEEK 4 Active halobetasol (ULTRAVATE) 0.05 % cream Use 1-2 grams on affected area daily 3 Active pravastatin (PRAVACHOL) 20 mg tablet Take 1 tablet (20 mg total) by mouth 1 (one) time each day. 3 Active amLODIPine (NORVASC) 10 mg tablet TAKE 1 TABLET BY MOUTH DAILY 90 tablet 5 Active carbidopa-levo dopa (SINEMET) 25-100 mg per tablet Take 1 tablet by mouth. 5 Active B complex tablet Take 1 tablet by mouth 1 (one) time each day. Active INV [id number] bezisterim or placebo 20 mg capsule Take 1 capsule (20 mg total) by mouth every 12 (twelve) hours. Active amLODIPine (NORVASC) 10 mg tablet TAKE 1 TABLET BY MOUTH DAILY 90 tablet 5 025 Discontinued Active Problems Problem Noted Date Diagnosed Date Vitamin B12 deficiency 11/02/2023 Vitamin D deficiency 11/02/2023 Lichen sclerosus 03/18/2022 HTN (hypertension) 03/08/2014 Basal cell carcinoma of skin 02/16/2013 Overview (10/15/2024): BCC / left cheek (metatypical type) & right cheek (nodular) Actinic keratosis 02/16/2013 Overview (10/15/2024): Actinic keratosis Right jaw (anterior & posterior) Pterygium 02/19/2011 Osteoarthritis of hip 04/01/2010 Pure hypercholesterolemia 07/15/2006 Rosacea 07/15/2006 Encounters Date Type Department Care Team Description 07/26/2025 11:00 AM EDT Office Visit Adult [address] [phone] Antonette Booker MD Parkinson's disease with dyskinesia without fluctuating manifestations (CMS/HCC V24, CMS/HCC V28) (Primary Dx); Chronic maxillary sinusitis 07/24/2025 Telephone Adult [address] [phone] Pasquale Paz RN 05/14/2025 3:00 PM EDT Office Visit [address] [phone] Antonette Booker MD Annual physical exam (Primary Dx); Routine general medical examination at a health care facility 05/11/2025 Telephone Adult [address] [phone] Pasquale Paz RN 05/09/2025 11:42 AM EDT - 05/09/2025 11:59 PM EDT Hospital Encounter Radiology Department - [address] [phone] Abnormal CAT scan Discharge Disposition: Home or Self Care from Last 3 Months Immunizations Immunization Administration Dates Next Due Influenza trivalent, 0.5mL, preservative free (Fluarix; FluLaval; Fluzone) ages 6mo and older (Afluria) 3 years and older 10/15/2012 Tdap Tetanus diptheria acell ular pertussis (Boostrix; Adacel) 7yo and older 03/08/2014 Surgical History Surgery Date Site/Laterality Comments SECTION PROCEDURE: MS DELIVERY ONLY; COMMENT: x 2 OTHER SURGICAL HISTORY 04/10 PROCEDURE: MS ARTHRS KNEE W/MENISCECTOMY MED&LAT W/SHAVING; COMMENT: right HIP ARTHROPLASTY 2009 PROCEDURE: HISTORICAL HIP REPLACEMENT; COMMENT: left TOTAL KNEE ARTHROPLASTY 2010 PROCEDURE: MS ARTHRP KNE CONDYLE&PLATU MEDIAL&LAT COMPARTMENTS; COMMENT: right KNEE ARTHROSCOPY 11/17 PROCEDURE: MS ARTHROSCOPY KNEE DIAGNOSTIC W/WO SYNOVIAL BX SPX; COMMENT: left Medical History Medical History Date Comments Routine general medical exam ination at a health care facility 07/15/2006 DX:Routine general medical examination at a health care facility Pure hypercholesterolemia 07/15/2006 DX:Pur e hypercholesterolemia Rosacea 07/15/2006 DX:Rosacea Basal cell carcinoma of skin 02/16/2013 DX: Basal cell carcinoma of skin HTN (hypertension) 03/08/2014 DX:HTN (hyper tension) Osteoarthritis of hip 04/01/2010 DX:Osteoar thritis of hip Family History Medical History Relation Name Comments Prostate cancer Brother 1 Prostate cancer Father Breast cancer Mother 28 passed at 29y/ o Melanoma Other paternal first cousin Coronary artery disease Paternal Grandfather of a heart attack Colon cancer Neg Hx Ovarian cancer Neg Hx Uterine cancer Neg Hx Relation Name Status Comments Brother 1 Alive 1 brother,, H/O prostate cancer, fair health Brother 2 Alive 1/2 brother hea lthy Daughter Alive 1 daughter heal thy Lor Father (Age 83) parkinsons , pacemaker, prostate cancer Maternal Grandfather unknown Maternal Grandmother unknown Mother 28 (Age 29) breast can cer Other Paternal Grandfather [place] Paternal Grandmother old age Sister Alive 2 sisters, good health; 1/2 sister healty Son Alive 1 son healthy, [place] Social History Tobacco Use Types Packs/Day Years Used Date Smoking Tobacco: Never Smokeless Tobacco: Never Tobacco Cessation:Counseling Given: Not Answered Alcohol Use Standard Drinks/Week Comments Yes 0 (1 standard drink = 0.6 oz pur e alcohol) Comments No Sex and Gender Information Value Date Recorded Sex Assigned at Not on file Legal Sex Female 11:37 AM EST Gender Identity Not on file Sexual Orientation Not on file Obstetrics History Para Term AB IAB SAB Ectopic Multiple Livin g Live Births 2 2 2 2 Date Outcome GA Total Labor Labor/2nd/3rd Weight Sex Type Anes PTL Livier A1 A5 Name Clin Term Term Last Filed Vital Signs Vital Sign Reading Time Taken Comments Blood Pressure 150/72 07/26/2025 11:26 AM EDT Pulse 70 07/26/2025 11:26 AM EDT Temperature 36.6 C (97.8 F) 07/26/2025 11:26 AM EDT Respiratory Rate - - Oxygen Saturation - - Inhaled Oxygen Concentration - - Weight 64.3 kg (141 lb 12.8 oz) 025 11:26 AM EDT Height 170.2 cm (5' 7 ) 05/14/2025 2:58 PM EDT Body Mass Index 22.21 05/14/2025 2:58 PM EDT Plan of Treatment Upcoming Encounters Date Type Department Care Team (Late st Contact Info) Description 11/19/2025 11:00 AM EST Office Visit Adult Medicine - [address] [phone] Antonette Blanco MD [address] [place] [address] Health Maintenance Due Date Last Done Comments Depression Screening 10/03/2025 Postpon ed from 10/04/2024 (Not clinically appropriate to address at this time) Breast Cancer Screening 02/16/2026 02/17/20 25, 02/11/2024, 02/11/2024, Additional history exists Falls Risk Assessment 05/14/2026 05/14/2025 Hypertension/CHF/CAD Annual BMP Blood Test 05/14/2026 05/14/2025, 05/01/2024, 05/01/2024, Additional history exists Medicare Annual Wellness Visit 05/14/2026 05/14/2025, 05/01/2024 RSV Immunization Adult Patients (1 - 1-dose 75+ series) 01/24/2028 Cholesterol Screening (Lipid Panel) 05/14/2030 05/14/2025, 03/08/2023, 04/27/2022 Influenza Vaccine Discontinued 10/15/2012 DTaP,Tdap,and Td Vaccines Discontinued 03/08/2014, 03/2003 Hepatitis C Screening Completed 03/08/2014 COVID-19 Vaccine Discontinued Colorectal Cancer Screening: Stool Based Tests (FOBT/FIT) Discontinued HIB Vaccines Aged Out No longer eligi ble based on patient's age to complete this topic HPV Vaccines Aged Out No longer eligi ble based on patient's age to complete this topic Hepatitis A Vaccines Aged Out No long er eligible based on patient's age to complete this topic Hepatitis B Vaccines Aged Out No long er eligible based on patient's age to complete this topic IPV Vaccines Aged Out No longer eligi ble based on patient's age to complete this topic MMR Vaccines Aged Out No longer eligi ble based on patient's age to complete this topic Meningococcal ACWY Vaccine Aged Out N o longer eligible based on patient's age to complete this topic Meningococcal B Vaccine Aged Out No l onger eligible based on patient's age to complete this topic Osteoporosis Screening (Bone Density Screening) Discontinued Pneumococcal Vaccine: 50+ Years Discontinued RSV Immunization Patients Under 20 months Aged Out No longer eligible based on patient's age to complete this topic Social Influencers of Health Screening Discontinued Varicella Vaccines Aged Out No longer eligible based on patient's age to complete this topic Zoster Vaccines Discontinued Procedures Procedure Name Priority Date/Time Associated Diagnosis Comments EXTERNAL CLINICAL LAB 07/24/2025 EXTERNAL CLINICAL LAB 06/29/2025 EXTERNAL NEUROLOGY REPORT 06/28/2025 CBC WITH AUTO DIFFERENTIAL Routine 05/14/2025 3:38 PM EDT Annual physical exam CBC AND DIFFERENTIAL Routine 05/14/2025 3:38 PM EDT Annual physical exam COMPREHENSIVE METABOLIC PANEL Routine 05/14/2025 3:38 PM EDT Annual physical exam THYROID STIMULATING HORMONE WITH REFLEX TO FREE T4 AND FREE T3 Routine 05/14/2025 3:38 PM EDT Annual physical exam LIPID PANEL WITH REFLEX TO DIRECT LDL Routine 05/14/2025 3:38 PM EDT Annual physical exam MR BRAIN WO AND W CONTRAST Routine 05/09/2025 1:11 PM EDT Abnormal CAT scan MG MAMMO DIGITAL SCREENING W ARIEL BILAT Routine 02/16/2025 1:02 PM EDT Encounter for screening mammogram for breast cancer HEPATITIS C SCREENING Routine 03/08/2014 from Last 3 Months or Most Recently Relevant to Health Maintenance Results * External clinical lab (07/24/2025) Only the most recent of2 resultswithin the time period is included. Provider [facility] LAB BLOOD ORDERABLES Fin al Result * External Neurology Report (06/28/2025) Provider [facility] NEUROLOGY ORDERABLES Fin al Result * Thyroid stimulating hormone with reflex to free t4 and free t3 (05/14/2025 3:38 PM EDT) TSH 0.99 0.40 - 4.00 mcIU/mL LAB CHEMISTRY METHOD 05/14/2025 6:29 PM EDT [facility] Blood Venous blood specimen / Unknown Venipuncture / Unknown 05/14/2025 3:38 PM EDT 05/14/2025 3:38 PM EDT Antonette Blanco MD LAB BLOOD ORDERABL ES Final Result [facility] [address] [place] [address], * (ABNORMAL) Lipid panel with reflex to direct LDL (05/14/2025 3:38 PM EDT) Cholesterol 239(H) 0 - 200 mg/dL LAB CHEMISTRY METHOD 05/14/2025 6:06 PM EDT [facility] Triglycerides 128 0 - 150 mg/dL LAB CHEMISTRY METHOD 05/14/2025 6:06 PM EDT [facility] HDL 88 >=40 mg/dL LAB CHEMISTRY METHOD 05/14/2025 6:06 PM EDT [facility] LDL Calculated 125(H) 0 - 100 mg/dL LAB CHEMISTRY METHOD 05/14/2025 6:06 PM EDT [facility] Comment:Estimated LDL Calcul ated using equation: Total cholesterol - HDL cholesterol - (Triglycerides/5) VLDL Cholesterol Abner 25.6 mg/dL LAB CHEMISTRY METHOD 05/14/2025 6:06 PM EDT [facility] Non HDL Chol. (LDL+VLDL) 151(H) <145 mg/dL LAB CHEMISTRY METHOD 05/14/2025 6:06 PM EDT [facility] Chol/HDL Ratio 2.7 0.0 - 4.4 LAB CHEMISTRY METHOD 05/14/2025 6:06 PM EDT [facility] Blood Venous blood specimen / Unknown Venipuncture / Unknown 05/14/2025 3:38 PM EDT 05/14/2025 3:38 PM EDT us Antonette Blanco MD LAB BLOOD ORDERABL ES Final Result [facility] [address] [place] [address], * (ABNORMAL) CBC auto differential (05/14/2025 3:38 PM EDT) WBC 4.5(L) 4.8 - 10.8 K/mcL LAB HEMETOLOGY METHOD 05/14/2025 5:49 PM EDT [facility] RBC 4.20 3.80 - 4.80 M/mcL LAB HEMETOLOGY METHOD 05/14/2025 5:49 PM EDT [facility] Hemoglobin 12.9 11.5 - 16.0 g/dL LAB HEMETOLOGY METHOD 05/14/2025 5:49 PM EDT [facility] Hematocrit 38.0 35.0 - 47.0 % LAB HEMETOLOGY METHOD 05/14/2025 5:49 PM EDT [facility] MCV 89.8 79.0 - 98.0 FL LAB HEMETOLOGY METHOD 05/14/2025 5:49 PM EDT [facility] MCH 30.5 27.0 - 32.0 pcg LAB HEMETOLOGY METHOD 05/14/2025 5:49 PM EDT [facility] MCHC 33.9 32.0 - 37.0 g/dL LAB HEMETOLOGY METHOD 05/14/2025 5:49 PM EDT [facility] RDW 12.5 11.0 - 15.0 % LAB HEMETOLOGY METHOD 05/14/2025 5:49 PM EDT [facility] Platelets 237 130 - 400 K/mcL LAB HEMETOLOGY METHOD 05/14/2025 5:49 PM EDT [facility] MPV 10.3 7.0 - 11.0 FL LAB HEMETOLOGY METHOD 05/14/2025 5:49 PM EDT [facility] NRBC 0.0 <1.0 % LAB HEMETOLOGY METHOD 05/14/2025 5:49 PM EDT [facility] NRBC Absolute 0.00 <0.10 K/mcL LAB [facility]EMETOLOGY [facility]/14[facility] Neutrophils Relative 70.2 % LAB HEMETOLOGY METHOD 05/14/2025 5:49 PM EDT [facility] Lymphocytes Relative 20.2 % LAB HEMETOLOGY METHOD 05/14/2025 5:49 PM EDT [facility] Monocytes Relative 8.1 % LAB HEMETOLOGY METHOD 05/14/2025 5:49 PM EDT [facility] Eosinophils Relative 0.9 % LAB HEMETOLOGY METHOD 05/14/2025 5:49 PM EDT [facility] Basophils Relative 0.4 % LAB HEMETOLOGY METHOD 05/14/2025 5:49 PM EDT [facility] Immature Granulocytes Relative 0.2 % LAB HEMETOLOGY METHOD 05/14/2025 5:49 PM EDT [facility] Neutrophils Absolute 3.12 1.50 - 7.00 K/mcL LAB HEMETOLOGY METHOD 05/14/2025 5:49 PM EDT [facility] Lymphocytes Absolute 0.90(L) 1.00 - 5.00 K/mcL LAB HEMETOLOGY METHOD 05/14/2025 5:49 PM EDT [facility] Monocytes Absolute 0.36 0.20 - 1.00 K/mcL LAB HEMETOLOGY METHOD 05/14/2025 5:49 PM EDT [facility] Eosinophils Absolute 0.04 0.00 - 0.50 K/mcL LAB HEMETOLOGY METHOD 05/14/2025 5:49 PM EDT [facility] Basophils Absolute 0.02 0.00 - 0.20 K/mcL LAB HEMETOLOGY METHOD 05/14/2025 5:49 PM EDT [facility] Immature Granulocytes Absolute 0.01 0.00 - 0.03 K/mcL LAB HEMETOLOGY METHOD 05/14/2025 5:49 PM [facility] Blood Venous blood specimen / Unknown Venipuncture / Unknown 05/14/2025 3:38 PM EDT 05/14/2025 3:38 PM EDT us Antonette Blanco MD LAB BLOOD ORDERABL ES Final Result [facility] [address] [place] [address], * Comprehensive metabolic panel (05/14/2025 3:38 PM EDT) Sodium 137 133 - 145 mmol/L LAB CHEMISTRY METHOD 05/14/2025 6:01 PM EDT [facility] Potassium 3.8 3.5 - 5.5 mmol/L LAB CHEMISTRY METHOD 05/14/2025 6:01 PM [facility] Chloride 104 96 - 110 mmol/L LAB CHEMISTRY METHOD 05/14/2025 6:01 PM [facility] CO2 26 21 - 32 mmol/L LAB CHEMISTRY METHOD 05/14/2025 6:01 PM [facility] Anion Gap 7 3 - 11 LAB CHEMISTRY METHOD 05/14/2025 6:01 PM [facility] Glucose 89 70 - 100 mg/dL LAB CHEMISTRY METHOD 05/14/2025 6:01 PM [facility] BUN 10 5 - 25 mg/dL LAB CHEMISTRY METHOD 05/14/2025 6:01 PM [facility] Creatinine 0.52 0.50 - 1.10 mg/dL LAB CHEMISTRY METHOD 05/14/2025 6:01 PM [facility] eGFR 99 >=60 mL/min/1. 73m2 LAB CHEMISTRY METHOD 05/14/2025 6:01 PM [facility] Comment:Calculation based on the Chronic Kidney Disease Epidemiology Collaboration (CKD-EPI) equation refit without adjustment for race. BUN/Creatinine Ratio 19.2 LAB CHEMISTRY METHOD 05/14/2025 6:01 PM [facility] Calcium 8.8 8.5 - 10.5 mg/dL LAB CHEMISTRY METHOD 05/14/2025 6:01 PM [facility] AST (SGOT) 20 10 - 42 unit/L LAB CHEMISTRY METHOD 05/14/2025 6:01 PM [facility] ALT (SGPT) 12 10 - 60 unit/L LAB CHEMISTRY METHOD 05/14/2025 6:01 PM [facility] Alkaline Phosphatase 76 42 - 121 unit/L LAB CHEMISTRY METHOD 05/14/2025 6:01 PM [facility] Total Protein 6.7 6.0 - 8.0 g/dL LAB CHEMISTRY METHOD 05/14/2025 6:01 PM EDT [facility] Albumin 4.0 3.2 - 5.0 g/dL LAB CHEMISTRY METHOD 05/14/2025 6:01 PM EDT [facility] Total Bilirubin 0.4 0.0 - 1.4 mg/dL LAB CHEMISTRY METHOD 05/14/2025 6:01 PM EDT [facility] Blood Venous blood specimen / Unknown Venipuncture / Unknown 05/14/2025 3:38 PM EDT 05/14/2025 3:38 PM EDT us Antonette Blanco MD LAB BLOOD ORDERABL ES Final Result [facility] [address] [place] [address], * MR Brain wo and w Contrast (05/09/2025 1:11 PM EDT) Anatomical Region Laterality Modality Head and Neck Magnetic Resonan ce 05/10/2025 6:47 PM EDT Impressions 05/10/2025 7:13 PM EDT Impression: 1. Moderate white matter changes consistent with microvascular ischemic changes. No acute intracranial process 2. Faint hyperintense FLAIR signal within the bilateral hippocampi, this is nonspecific but can be seen in patients with history of seizures. 3. No abnormal intracranial enhancement 4. No MRI findings to suggest Parkinson's. Consider nuclear medicine examination if further evaluation is needed -------- FINAL REPORT -------- Dictated By: South Mccoy Dictated Date: 05/10/2025 18:47 ET Assigned Physician: South Mccoy Reviewed and Electronically Signed By: South Mccoy Signed Date: 05/10/2025 19:13 ET Workstation ID: [id number] Transcribed By: Self Edit Transcribed Date: 05/10/2025 18:47 ET Narrative 05/10/2025 7:13 PM EDT MRI BRAIN WITH AND WITHOUT CONTRAST Clinical Statement: Brain mass or lesion Abnormal CT scan radiologist recommended MRI question Parkinson's Comparison: CT head from 04/18/2025 Technique: Multiplanar, multisequence MR images of the brain were obtained prior to and following the uneventful intravenous administration of 15 mL of Dotarem Findings: There is no evidence of diffusion restriction. No intracranial hemorrhage. Moderate white matter hyperintensities within the periventricular and supraventricular region consistent with microvascular ischemic changes. Faint hyperintense FLAIR signal within the bilateral hippocampi. The craniocervical junction is normal. The ventricular system is prominent commensurate with the degree of volume loss. The basilar cisterns are normal. There is no evidence of abnormal intracranial enhancement. The orbits and globes are within normal limits. Mucosal thickening within the paranasal sinuses. Procedure Note South Mccoy MD - 05/10/2025 MRI BRAIN WITH AND WITHOUT CONTRAST Clinical Statement: Brain mass or lesion Abnormal CT scan radiologist recommended MRI question Parkinson's Comparison: CT head from 04/18/2025 Technique: Multiplanar, multisequence MR images of the brain wereobtained prior to and following the uneventful intravenous administrationof 15 mL of Dotarem Findings: There is no evidence of diffusion restriction. No intracranialhemorrhage. Moderate white matter hyperintensities within theperiventricular and supraventricular region consistent with microvascularischemic changes. Faint hyperintense FLAIR signal within the bilateralhippocampi. The craniocervical junction is normal. The ventricular systemis prominent commensurate with the degree of volume loss. The basilarcisterns are normal. There is no evidence of abnormal intracranialenhancement. The orbits and globes are within normal limits. Mucosalthickening within the paranasal sinuses. IMPRESSION: Impression: 1. Moderate white matter changes consistent with microvascular ischemicchanges. No acute intracranial process 2. Faint hyperintense FLAIR signal within the bilateral hippocampi, thisis nonspecific but can be seen in patients with history of seizures. 3. No abnormal intracranial enhancement 4. No MRI findings to suggest Parkinson's. Consider nuclear medicineexamination if further evaluation is needed -------- FINAL REPORT -------- Dictated By: South Mccoy Dictated Date: 05/10/2025 18:47 ET Assigned Physician: South Mccoy Reviewed and Electronically Signed By: South Mccoy Signed Date: 05/10/2025 19:13 ET Workstation ID: [id number] Transcribed By: Self Edit Transcribed Date: 05/10/2025 18:47 ET Antonette Blanco MD IMG MRI PROCEDURES Final Result * MG Mammo Digital Screening w Ariel bilat (02/16/2025 1:02 PM EDT) Anatomical Region Laterality Modality Breast Bilateral Mammography 02/16/2025 6:21 PM EDT Impressions 02/16/2025 6:22 PM EDT No mammographic evidence of malignancy. BREAST DENSITY: C - The breasts are heterogeneously dense which may obscure small masses. BI-RADS CATEGORY: 1 - NEGATIVE RECOMMENDATION: Screening bilateral mammogram is recommended in 1 year. MAMMO LOCATION: [facility], [address] [place] [address], [facility], . -------- FINAL REPORT -------- Dictated By: Mimi Yun Dictated Date: 02/16/2025 18:21 ET Assigned Physician: Mimi Yun Reviewed and Electronically Signed By: Mimi Yun Signed Date: 02/16/2025 18:22 ET Workstation ID: [id number] Transcribed By: Self Edit Transcribed Date: 02/16/2025 18:21 ET Narrative 02/16/2025 6:22 PM EDT EXAM: Screening Mammogram CLINICAL: 70 years old, Female, routine annual exam. COMPARISON: 02/11/2024 and as far back as 10/03/2020 TECHNIQUE: Bilateral MLO and CC views were obtained digitally with 3-D mammogram (digital breast tomosynthesis). Computer-aided detection was utilized in evaluation of this exam (CAD). FINDINGS: No new suspicious mass, architectural distortion, or suspicious calcifications. Procedure Note Mimi Yun MD - 02/16/2025 EXAM: Screening Mammogram CLINICAL: 70 years old, Female, routine annual exam. COMPARISON: 02/11/2024 and as far back as 10/03/2020 TECHNIQUE: Bilateral MLO and CC views were obtained digitally with 3-Dmammogram (digital breast tomosynthesis). Computer-aided detection wasutilized in evaluation of this exam (CAD). FINDINGS: No new suspicious mass, architectural distortion, or suspiciouscalcifications. IMPRESSION: No mammographic evidence of malignancy. BREAST DENSITY: C - The breasts are heterogeneously dense which mayobscure small masses. BI-RADS CATEGORY: 1 - NEGATIVE RECOMMENDATION: Screening bilateral mammogram is recommended in 1 year. MAMMO LOCATION: [facility], [address] [place] [address], [id number], . -------- FINAL REPORT -------- Dictated By: Mimi Yun Dictated Date: 02/16/2025 18:21 ET Assigned Physician: Mimi Yun Reviewed and Electronically Signed By: Mimi Yun Signed Date: 02/16/2025 18:22 ET Workstation ID: [id number] Transcribed By: Self Edit Transcribed Date: 02/16/2025 18:21 ET Antonette Blanco MD IMG BI PROCEDURES Final Result * Hepatitis C Screening (03/08/2014) Hepatitis C Screening abstracted Historical Provider HEALTH MAINTENANCE Final Result from Last 3 Months or Most Recently Relevant to Health Maintenance Insurance [employer] [place] MEDICARE ADVANTAGE Care Teams Machine Stripper Relationship Specialty Start Date End Date Antonette Blanco MD [address] [place] [address] [place] [address] PCP - General Internal Medicine 03/20/21
== END ==
LOC: HO.CARD 09:43
PROVIDERS: PCP Internal Medicine; Visit Provider Psychiatry & Neurology Neurology
DX: I63.9 Cerebral infarction, unspecified (principal)
CPT/HCPCS: 93242

== ENCOUNTER → 2025-08-06 09:46 | Outpatient (BNV) | payer MEDICARE, SELFPAY | PROVIDERS: PCP Internal Medicine; Visit Provider Internal Medicine | DX: I49.49 Other premature depolarization (principal); I49.3 Ventricular premature depolarization | CPT/HCPCS: 93244 ==

== ENCOUNTER → 2025-08-28 10:53 | Outpatient (AMB) | payer MEDICARE, SELFPAY ==
--- NOTE | 2025-08-28 11:02 | MHC.OFFVIS ---
Intake Visit Reasons: results of holter HPI Comments Details: 70 years old woman with hypertension and Parkinson's disease and brain MRI revealing bilateral multiple ischemic cerebral infarction. She is presenting for a follow-up on Parkinson's disease management and recent ocular symptoms. She has been prescribed carbidopa/levodopa and reports an improvement over the last three weeks. A recent episode of diarrhea resolved within a week. The patient notes progressive ptosis of the left eyelid that started about a month ago, prompting concerns over myasthenia gravis. The right eyelid has been chronically affected, contributing to visual difficulties that might also involve cataracts. Non-adherence to hypertension management may underpin the multiple ischemic changes seen on brain imaging; these are presumed silent strokes. Consequently, she must be vigilant with her antihypertensive regimen. Cardiovascular evaluation, including Holter monitoring, has been indicated to assess stroke risks. Previous antibody tests related to myasthenia gravis were incomplete, indicating the need for repeat testing. Family history includes droopy eyelids among siblings. [facility] Medical History (Updated 08/28/25 @ 11:09 by Enrike Evans MD) Rosacea Pure hypercholesterolemia Osteoarthritis of hip Actinic keratosis Basal cell carcinoma of skin Hypertension Lichen sclerosus Vitamin B12 deficiency Vitamin D deficiency Family History (Updated 06/26/25 @ 11:38 by Jean Marie Anderson CMA) Mother Breast cancer Father Parkinson's disease dementia Prostate cancer Pacemaker Brother Prostate cancer Review of Systems Narrative - Neurological: Reports drooping eyelids, especially on the left. - Ophthalmologic: Reports progressive visual disturbance; indeterminate if related to cataracts. - Cardiovascular: Denies known heart disease. - Gastrointestinal: Reports recent episode of severe diarrhea, resolved. - Dermatologic: Denies any associated skin changes. Physical Exam Neuro Other: Mental Status: Alert and oriented to person, place, and time. Normal attention. Normal spontaneous speech, fluency, and comprehension. Cranial Nerves: CN II: Visual sanford full to confrontation, visual acuity intact. CN III, IV, : Pupils equal, round, reactive to light and accommodation. Extraocular movements are normal. CN V: Facial sensation is normal. CN VII: Facial movements symmetrical. CN VIII: Hearing intact to bedside conversation is normal. CN IX, X: Palate elevates symmetrically. CN XI: Shoulder shrug and head turn symmetrical. CN XII: Tongue midline without atrophy or fasciculations. Extrapyramidal: Full facial expressions and blinking. No rigidity. Movements are appropriate with no tremor or abnormality. Speech: Normal; no dysarthria or tremor. Results Reviewed Results Reviewed: Laboratory Tests 07/23/25 15:14 ESR 12 Lyme Screen IgG & IgM <0.90 Assessment & Plan Assessment & Plan (1) Parkinson disease: Code(s): G20.A1 - Parkinson's disease without dyskinesia, without mention of fluctuations Category: Medical Qualifiers: Dyskinesia presence: without dyskinesia Fluctuating manifestations: with fluctuating manifestations Qualified Code(s): G20.A2 - Parkinson's disease without dyskinesia, with fluctuations (2) Cerebral microvascular disease: Code(s): I67.89 - Other cerebrovascular disease Category: Medical (3) Multiple cerebral infarctions: Comment: MRI brain WWO at [facility] in May 2025: Mod WM changes of MVD, faint b/l hippcampi FLAIR signal, no enhancement (reported) CT brain WO at [facility] in April 2025: WM abnormalities in R frontal lobe (reported) Code(s): I63.9 - Cerebral infarction, unspecified Category: Medical Plan Impression: a: Parkinson disease b: Cerebral microvascular disease of brain Rec: a: Increase carbidopa/levodopa to 25/100, one 4 times a day b: Baby aspirin 81mg daily c: BP control During this visit, we reviewed the patient's history of Parkinson's disease and potential contributing factors to neurologic changes. Ongoing management with carbidopa/levodopa demonstrates tolerability with notable symptom improvement. We discussed the implications of inadequate hypertension control associated with silent ischemic strokes and reinforced the necessity for diligent adherence to antihypertensive therapy alongside low-dose aspirin to prevent further cerebrovascular events. On suspicion of myasthenia gravis as the cause for eye symptoms, additional antibody testing was advised following prior incomplete testing. Ophthalmologic consultation is suggested to determine if cataracts are contributing to visual changes. We planned cardiac monitoring via the Holter to detect arrhythmias potentially influencing stroke risks. The patient consented to all proposed interventions and agreed to the outlined follow-up procedures. Orders: Orders Acetylcholine [employer] Modulating Today H02.401 - Unspecified ptosis of right eyelid Acetylcholine Recept. Blocking Today H02.401 - Unspecified ptosis of right eyelid Acetylcholine Receptor Binding Today H02.401 - Unspecified ptosis of right eyelid Medications: New carbidopa-levodopa 25-100 mg (Sinemet) 1 tab PO QID 360 tabs 1RF Changed From carbidopa-levodopa 25-100 mg (Sinemet) 1 tab PO TID 270 tabs 1RF To carbidopa-levodopa 25-100 mg (Sinemet) 1 tab PO QID 360 tabs 1RF Coding Level of Care Code Est Pt Level 4 (05394) Diagnoses Parkinson's disease without dyskinesia, with fluctuating manifestations G20.A2 Dyskinesia presence: without dyskinesia Fluctuating manifestations: with fluctuating manifestations Cerebral microvascular disease I67.89 Multiple cerebral infarctions I63.9
--- OUTSIDE RECORDS SUMMARY | 2025-08-28 14:16 | XMS_ITS | Clinical Summary ---
Author Organization [address] Address [address] [place] [phone] Phone Care Team Providers Care Cannon Crewmember Name Role Phone Antonette Blanco MD Primary Care Prov ider Allergies Active Allergy Reactions Criticality Noted Date Comments Sulfamethoxazole-Trimethoprim Nausea And Vomiting 04/20/2014 Medications celecoxib (CeleBREX) 100 mg capsule 06/13/2024 Active ergocalciferol (VITAMIN D-2) 1,250 mcg (50,000 unit) capsule TAKE 1 CAPSULE BY MOUTH 1 TIME A WEEK 05/15/2024 Active halobetasol (ULTRAVATE) 0.05 % cream Use 1-2 grams on affected area daily 03/08/2023 Active pravastatin (PRAVACHOL) 20 mg tablet Take 1 tablet (20 mg total) by mouth 1 (one) time each day. 03/08/2023 Active amLODIPine (NORVASC) 10 mg tablet TAKE 1 TABLET BY MOUTH DAILY 90 tablet 07/24/2025 Active carbidopa-levod opa (SINEMET) 25-100 mg per tablet Take 1 tablet by mouth. 06/29/2025 Active B complex tablet Take 1 tablet by mouth 1 (one) time each day. Active INV [id number] bezisterim or placebo 20 mg capsule Take 1 capsule (20 mg total) by mouth every 12 (twelve) hours. Active Active Problems Problem Noted Date Diagnosed Date Vitamin B12 deficiency 11/02/2023 Vitamin D deficiency 11/02/2023 Lichen sclerosus 03/18/2022 HTN (hypertension) 03/08/2014 Basal cell carcinoma of skin 02/16/2013 Overview (10/15/2024): BCC 5/13 left cheek (metatypical type) & right cheek (nodular) Actinic keratosis 02/16/2013 Overview (10/15/2024): Actinic keratosis Right jaw (anterior & posterior) Pterygium 02/19/2011 Osteoarthritis of hip 04/01/2010 Pure hypercholesterolemia 07/15/2006 Rosacea 07/15/2006 Encounters Date Type Department Care Team Description 07/26/2025 11:00 AM EDT Office Visit Adult Medicine [facility] [address] [place] [phone] Antonette Lino MD Parkinson's disease with dyskinesia without fluctuating manifestations (CMS/HCC V24, CMS/HCC V28) (Primary Dx); Chronic maxillary sinusitis 07/24/2025 Telephone Adult Medicine [facility] [address] [place] [phone] Pasquale Paz RN from Last 3 Months Immunizations Immunization Administration Dates Next Due Influenza trivalent, 0.5mL, preservative free (Fluarix; FluLaval; Fluzone) ages 6mo and older (Afluria) 3 years and older 10/15/2012 Tdap Tetanus diptheria acell ular pertussis (Boostrix; Adacel) 7yo and older 03/08/2014 Surgical History Surgery Date Site/Laterality Comments SECTION PROCEDURE: [place] DELIVERY ONLY; COMMENT: x 2 OTHER SURGICAL HISTORY 04/10 PROCEDURE: [place] ARTHRS KNEE W/MENISCECTOMY MED&LAT W/SHAVING; COMMENT: right HIP ARTHROPLASTY 2009 PROCEDURE: HISTORICAL HIP REPLACEMENT; COMMENT: left TOTAL KNEE ARTHROPLASTY 2010 PROCEDURE: [place] ARTHRP KNE CONDYLE&PLATU MEDIAL&LAT COMPARTMENTS; COMMENT: right KNEE ARTHROSCOPY 11/17 PROCEDURE: [place] ARTHROSCOPY KNEE DIAGNOSTIC W/WO SYNOVIAL BX SPX; [...] 27) breast can cer Other Paternal Grandfather [place] Paternal Grandmother old age Sister Alive 2 [...] AM EST Office Visit Adult Medicine - [address] [place] [phone] Antonette Blanco MD [address] [place] [address] Health Maintenance Due Date Last Done Comments Depression Screening 10/03/2025 Postpon ed from 10/04/2024 (Not clinically appropriate to address at this time) Breast Cancer Screening 02/16/2026 02/17/20, 02/11/2024, 02/11/2024, Additional history exists Falls Risk [...] CLINICAL LAB 06/29/2025 EXTERNAL NEUROLOGY REPORT 06/28/2025 COMPREHENSIVE METABOLIC PANEL Routine 05/14/2025 3:38 PM EDT Annual physical exam LIPID PANEL WITH REFLEX TO DIRECT LDL Routine 05/14/2025 3:38 PM EDT Annual physical exam MG MAMMO DIGITAL SCREENING W ARIEL BILAT Routine 02/16/2025 1:02 PM EDT Encounter for screening mammogram for breast cancer HM HEPATITIS C SCREENING Routine 03/08/2014 from Last 3 Months or Most Recently Relevant to Health Maintenance Results * External clinical lab (07/24/2025) Only the most recent of2 resultswithin the time period is included. Provider [place] [facility] LAB BLOOD ORDERABLES Fin al Result * External Neurology Report (06/28/2025) Provider [place] [facility] NEUROLOGY ORDERABLES Fin al Result * (ABNORMAL) Lipid panel with reflex to direct LDL (05/14/2025 3:38 PM EDT) Cholesterol 239(H) 0 - 200 mg/dL LAB CHEMISTRY METHOD 05/14/2025 6:[address] [facility] Triglycerides 128 0 - 150 mg/dL LAB CHEMISTRY METHOD 05/14/2025 6:[address] [facility] HDL 88 >=40 mg/dL LAB CHEMISTRY METHOD 05/14/2025 6:[address] [facility] LDL Calculated 125(H) 0 - 100 mg/dL LAB CHEMISTRY METHOD 05/14/2025 6:[address] [facility] Comment:Estimated LDL Calcul ated using equation: Total cholesterol - HDL cholesterol - (Triglycerides/5) VLDL Cholesterol Abner 25.6 mg/dL LAB CHEMISTRY METHOD 05/14/2025 6:[address] [facility] Non HDL Chol. (LDL+VLDL) 151(H) <145 mg/dL LAB CHEMISTRY METHOD 05/14/2025 6:[address] [facility] Chol/HDL Ratio 2.7 0.0 - 4.4 LAB CHEMISTRY METHOD 05/14/2025 6:[address] [facility] Blood Venous blood specimen / Unknown Venipuncture / Unknown 05/14/2025 3:38 PM EDT 05/14/2025 3:38 PM EDT us Antonette Blanco MD LAB BLOOD ORDERABL ES Final Result [facility] [address] [place] [address], * Comprehensive metabolic panel (05/14/2025 3:38 PM EDT) Sodium 137 133 - 145 mmol/L LAB CHEMISTRY METHOD 05/14/2025 6:01 PM [facility] Potassium 3.8 3.5 - 5.5 mmol/L LAB CHEMISTRY METHOD 05/14/2025 6:01 PM [facility] Chloride 104 96 - 110 mmol/L LAB CHEMISTRY METHOD 05/14/2025 6:01 PM [facility] CO2 26 21 - 32 mmol/L LAB CHEMISTRY METHOD 05/14/2025 6:01 PM [facility] Anion Gap 7 3 - 11 LAB CHEMISTRY METHOD 05/14/2025 6:01 PM [facility] Glucose 89 70 - 100 mg/dL LAB CHEMISTRY METHOD 05/14/2025 6:01 PM [facility] BUN 10 5 - 25 mg/dL LAB CHEMISTRY METHOD 05/14/2025 6:01 PM [facility] Creatinine 0.52 0.50 - 1.10 mg/dL LAB CHEMISTRY METHOD 05/14/2025 6:01 PM [facility] eGFR 99 >=60 mL/min/1. 73m2 LAB CHEMISTRY METHOD 05/14/2025 6:01 PM [facility] Comment:Calculation based on the Chronic Kidney Disease Epidemiology Collaboration (CKD-EPI) equation refit without adjustment for race. BUN/Creatinine Ratio 19.2 LAB CHEMISTRY METHOD 05/14/2025 6:01 PM [facility] Calcium 8.8 8.5 - 10.5 mg/dL LAB CHEMISTRY METHOD 05/14/2025 6:01 PM [facility] AST (SGOT) 20 10 - 42 unit/L LAB CHEMISTRY METHOD 05/14/2025 6:01 PM [facility] ALT (SGPT) 12 10 - 60 unit/L LAB CHEMISTRY METHOD 05/14/2025 6:01 PM [facility] Alkaline Phosphatase 76 42 - 121 unit/L LAB CHEMISTRY METHOD 05/14/2025 6:01 PM [facility] Total Protein 6.7 6.0 - 8.0 g/dL LAB CHEMISTRY METHOD 05/14/2025 6:01 PM [facility] Albumin 4.0 3.2 - 5.0 g/dL LAB CHEMISTRY METHOD 05/14/2025 6:01 PM [facility] Total Bilirubin 0.4 0.0 - 1.4 mg/dL LAB CHEMISTRY METHOD 05/14/2025 6:01 PM [facility] Blood Venous blood specimen / Unknown Venipuncture / Unknown 05/14/2025 3:38 PM EDT 05/14/2025 3:38 PM EDT Antonette Blanco MD LAB BLOOD ORDERABL ES Final Result [facility] [address] [place] [address], [place] [phone] * MG Mammo Digital Screening w Ariel bilat (02/16/2025 1:02 PM EDT) Anatomical Region Laterality Modality Breast Bilateral Mammography 02/16/2025 6:21 PM EDT Impressions 02/16/2025 6:22 PM EDT No mammographic evidence of malignancy. BREAST DENSITY: C - The breasts are heterogeneously dense which may obscure small masses. BI-RADS CATEGORY: 1 - NEGATIVE RECOMMENDATION: Screening bilateral mammogram is recommended in 1 year. MAMMO LOCATION: [facility], [address] [place] [address], [id number], . -------- FINAL REPORT -------- Dictated By: Mimi Yun Dictated Date: 02/16/2025 18:21 ET Assigned Physician: Mimi Yun Reviewed and Electronically Signed By: Mimi Yun Signed Date: 02/16/2025 18:22 ET Workstation ID: [id number] Transcribed By: Self Edit Transcribed Date: 02/16/2025 [...] is recommended in 1 year. MAMMO LOCATION: [facility], [address] [place] [address], [id number], . -------- FINAL REPORT -------- Dictated By: Mimi Yun Dictated Date: 02/16/2025 18:21 ET Assigned Physician: Mimi Yun Reviewed and Electronically Signed By: Mimi Yun Signed Date: 02/16/2025 18:22 ET Workstation ID: [id number] Transcribed By: Self Edit Transcribed Date: 02/16/2025 18:21 ET Antonette Blanco MD IMG BI PROCEDURES Final Result * Hepatitis C Screening (03/08/2014) Hepatitis C Screening abstracted Historical Provider HEALTH MAINTENANCE Final Result from Last 3 Months or Most Recently Relevant to Health Maintenance Insurance [employer] [place] MEDICARE ADVANTAGE Care Teams Cannon Crewmember Relationship Specialty Start Date End Date Antonette Blanco MD [address] [place] [address] [phone] PCP - General Internal Medicine 03/20/21
--- OUTSIDE RECORDS SUMMARY | 2025-08-28 14:16 | XMS_ITS ---
Author Organization [facility] [address] [place] [address] [place] [phone] Phone Care Team Providers Care Aircraft Cleaner Name Role Phone Antonette Blanco MD Primary [...]
== END ==
LOC: HO.HSM 10:54
PROVIDERS: PCP Internal Medicine; Visit Provider Psychiatry & Neurology Neurology
DX: G20.A2 Parkinson's disease without dyskinesia, with fluctuations (principal); I67.89 Other cerebrovascular disease; I63.9 Cerebral infarction, unspecified
CPT/HCPCS: 99214

== ENCOUNTER → 2025-08-28 10:53 | Outpatient (BNVA) | payer MEDICARE, SELFPAY | PROVIDERS: PCP Internal Medicine; Visit Provider Psychiatry & Neurology Neurology | DX: G20.A2 Parkinson's disease without dyskinesia, with fluctuations (principal); I67.89 Other cerebrovascular disease; Z86.73 Personal history of transient ischemic attack (TIA), and cerebral infarction without residual deficits | CPT/HCPCS: 99212 ==